=== PATIENT | female | born 1960 | race Caucasian/White ===

== ENCOUNTER 2025-04-02 06:47 | Day surgery (SDC) | payer BC ==
[2025-03-26 09:12] VITALS: BMI 22.6
[2025-04-02] MEDS ORDERED: PROPOFOL 40 ML ONE (10:19)
[2025-04-02] MEDS ORDERED: PROPOFOL 20 ML ONE (10:29)
== END 2025-04-02 11:40 | disposition home or self-care (01) ==
LOC: CSHSDC 06:47
PROVIDERS: ATTEND Surgery
PROC: 0DB58ZX Excision of Esophagus, Via Natural or Artificial Opening Endoscopic, Diagnostic (ICD-10-PCS; principal; 2025-04-02)
PROC: 0DB68ZX Excision of Stomach, Via Natural or Artificial Opening Endoscopic, Diagnostic (ICD-10-PCS; principal; 2025-04-02)
PROC: 0DBP8ZX Excision of Rectum, Via Natural or Artificial Opening Endoscopic, Diagnostic (ICD-10-PCS; principal; 2025-04-02)
DX: Z12.11 Encounter for screening for malignant neoplasm of colon (principal); K21.00 Gastro-esophageal reflux disease with esophagitis, without bleeding; K29.50 Unspecified chronic gastritis without bleeding; K31.89 Other diseases of stomach and duodenum; K44.9 Diaphragmatic hernia without obstruction or gangrene; K63.5 Polyp of colon; I10 Essential (primary) hypertension; E78.5 Hyperlipidemia, unspecified; Z86.0100 Personal history of colon polyps, unspecified
CPT/HCPCS: 88305; 88342; J2704